=== PATIENT | female | born 1995 | race Two or more races ===

== ENCOUNTER 2023-08-26 11:08 | Observation (INO) | payer MEDICAID ==
[2023-08-26 15:07] LABS: Basophils # (auto) 0 10 ^3/uL (0-0.2); Basophils % (auto) 0.1 % (0.0-2.0); Eosinophils # (auto) 0.1 10 ^3/uL (0-0.8); Eosinophils % (auto) 0.4 % (0.0-7.0); Hematocrit 39.9 % (36.0-46.0); Hemoglobin 13.3 g/dL (12.2-16.2); Lymphocytes # (auto) 1.9 10 ^3/uL (0.4-5.4); Lymphocytes % (auto) 15.1 % (10.0-50.0); Mean Corpuscular Hemoglobin 29.7 pg (28.0-32.0); Mean Corpuscular Hgb Conc. 33.3 g/dL (32.0-36.0); Mean Corpuscular Volume 89.1 fL (80.0-100.0); Monocytes # (auto) 0.7 10 ^3/uL (0-1.3); Monocytes % (auto) 5.4 % (0.0-12.0); Red Blood Cells 4.48 10^6/uL (4.0-5.20); Red Cell Distribution Width 12.8 % (11.8-14.3); White Blood Cell 12.6 10^3/uL (4.4-10.8)
[2023-08-26 15:08] LABS: Urine Bacteria FEW /hpf (None Seen); Urine Blood Negative /uL (Negative); Urine Clarity Clear (Clear); Urine Color Yellow (Yellow); Urine Mucus FEW (None Seen); Urine Protein, UAD Negative (Negative); Urine Specific Gravity 1.018 (1.001-1.035); Urine Urobilinogen Normal (Negative); Urine WBC 2 /hpf (0 - 5); Urine pH 6.5 (5.0-8.0)
[2023-08-26 15:20] LABS: Protein, Urine 21.5 mg/dL (0.0-11.9)
[2023-08-26 15:21] LABS: INR 0.96 (0.9-1.15); Partial Thromboplastin Time 27.7 SEC (24.5-34.5); Prothrombin Time 10.1 sec (9.3-11.8)
[2023-08-26 15:23] LABS: Creatinine, Urine 77.02 mg/dL (30.0-125.0); Urine Protein/Creatinine Ratio 0.28
[2023-08-26 15:26] LABS: Alanine Aminotransferase 53 U/L (7-40); Albumin 3.9 g/dL (3.2-4.8); Alkaline Phosphatase 192 U/L (46-116); Anion Gap 11 (5-15); Aspartate Aminotransferase 40 U/L (13-40); Calcium 9.3 mg/dL (8.5-10.1); Carbon Dioxide 19 mmol/L (20-30); Chloride 106 mmol/L (98-107); Glucose 71 mg/dL (74-106); Potassium 3.7 mmol/L (3.5-5.1); Sodium 136 mmol/L (136-145)
[2023-08-26 15:27] LABS: Bilirubin, Total 0.5 mg/dL (0.2-1.0); Total Protein 6.9 g/dL (5.7-8.2)
[2023-08-26 15:29] LABS: BUN/Creatinine Ratio 10.2 (10.0-20.0); Blood Urea Nitrogen < 5 mg/dL (9-23)
[2023-08-26 15:44] LABS: Uric Acid 4.5 mg/dL (3.1-7.8)
== END 2023-08-26 16:30 | disposition home or self-care (01) ==
LOC: LDRP 11:08 → UNDOADMOB 11:08 → LDRP 13:28
PROVIDERS: ADMIT Obstetrics & Gynecology; ATTEND Obstetrics & Gynecology
DX: O13.3 Gestational [pregnancy-induced] hypertension without significant proteinuria, third trimester (principal); Z3A.36 36 weeks gestation of pregnancy
CPT/HCPCS: 36415; 59025; 76818; 80053; 81001; 81002; 82570; 84156; 84550; 85025; 85610; 85730; 94760; G0378

== ENCOUNTER 2023-08-28 13:05 | Observation (INO) | payer MEDICAID ==
[2023-08-28] MEDS ORDERED: PREN1TAB71 OR (13:34)
[2023-08-28 14:15] LABS: Basophils # (auto) 0 10 ^3/uL (0-0.2); Basophils % (auto) 0.2 % (0.0-2.0); Eosinophils # (auto) 0.1 10 ^3/uL (0-0.8); Eosinophils % (auto) 1.1 % (0.0-7.0); Hematocrit 39.6 % (36.0-46.0); Hemoglobin 13.3 g/dL (12.2-16.2); Lymphocytes # (auto) 1.9 10 ^3/uL (0.4-5.4); Lymphocytes % (auto) 17.5 % (10.0-50.0); Mean Corpuscular Hemoglobin 29.7 pg (28.0-32.0); Mean Corpuscular Hgb Conc. 33.5 g/dL (32.0-36.0); Mean Corpuscular Volume 88.8 fL (80.0-100.0); Monocytes # (auto) 0.9 10 ^3/uL (0-1.3); Monocytes % (auto) 8.7 % (0.0-12.0); Neutrophils # (auto) 7.8 10 ^3/uL (1.6-8.6); Neutrophils % (auto) 72.5 % (37.0-80.0); Red Blood Cells 4.46 10^6/uL (4.0-5.20); Red Cell Distribution Width 12.8 % (11.8-14.3); White Blood Cell 10.8 10^3/uL (4.4-10.8)
[2023-08-28 14:33] LABS: INR 0.94 (0.9-1.15); Partial Thromboplastin Time 27.9 SEC (24.5-34.5); Prothrombin Time 9.9 sec (9.3-11.8)
[2023-08-28 14:35] LABS: Alanine Aminotransferase 54 U/L (7-40); Albumin 3.8 g/dL (3.2-4.8); Alkaline Phosphatase 206 U/L (46-116); Anion Gap 9 (5-15); Aspartate Aminotransferase 43 U/L (13-40); BUN/Creatinine Ratio 10.3 (10.0-20.0); Bilirubin, Total 0.5 mg/dL (0.2-1.0); Blood Urea Nitrogen 6 mg/dL (9-23); Carbon Dioxide 21 mmol/L (20-30); Chloride 107 mmol/L (98-107); Glucose 73 mg/dL (74-106); Potassium 4.5 mmol/L (3.5-5.1); Sodium 137 mmol/L (136-145); Total Protein 6.3 g/dL (5.7-8.2); Uric Acid 4.4 mg/dL (3.1-7.8)
[2023-08-28 15:21] LABS: Urine Bacteria FEW /hpf (None Seen); Urine Blood Negative /uL (Negative); Urine Clarity Clear (Clear); Urine Color Yellow (Yellow); Urine Mucus FEW (None Seen); Urine Protein, UAD TRACE (Negative); Urine Specific Gravity 1.024 (1.001-1.035); Urine Urobilinogen Normal (Negative); Urine WBC 4 /hpf (0 - 5)
[2023-08-28 15:33] LABS: Protein, Urine 25.5 mg/dL (0.0-11.9)
[2023-08-28 15:35] LABS: Creatinine, Urine 113.85 mg/dL (30.0-125.0); Urine Protein/Creatinine Ratio 0.22
[2023-08-28 16:45] LABS: Protein, Urine 13.6 mg/dL (0.0-11.9)
[2023-08-28 18:02] LABS: 24 Hr. Total Protein, Urine 244.8 mg/24 Hr (<149.1)
== END 2023-08-28 16:40 | disposition home or self-care (01) ==
LOC: LDRP 13:05
PROVIDERS: ADMIT Obstetrics & Gynecology; ATTEND Obstetrics & Gynecology
DX: O13.3 Gestational [pregnancy-induced] hypertension without significant proteinuria, third trimester (principal); O26.893 Other specified pregnancy related conditions, third trimester; R10.30 Lower abdominal pain, unspecified; Z3A.36 36 weeks gestation of pregnancy
CPT/HCPCS: 36415; 59025; 76818; 80053; 81001; 81002; 82570; 84156; 84550; 85025; 85610; 85730; G0378

== ENCOUNTER 2023-09-01 10:07 | Observation (INO) | payer MEDICAID ==
[~2023-09-01] VITALS: Ht 154.9 cm; Wt 79.4 kg
[~2023-09-01 10:07] MED LIST: PREN1TAB71 OR
[2023-09-01 11:02] LABS: Basophils # (auto) 0 10 ^3/uL (0-0.2); Basophils % (auto) 0.1 % (0.0-2.0); Eosinophils # (auto) 0.1 10 ^3/uL (0-0.8); Eosinophils % (auto) 1.4 % (0.0-7.0); Hematocrit 37.5 % (36.0-46.0); Hemoglobin 12.8 g/dL (12.2-16.2); Lymphocytes # (auto) 1.6 10 ^3/uL (0.4-5.4); Lymphocytes % (auto) 17.7 % (10.0-50.0); Mean Corpuscular Hemoglobin 30.3 pg (28.0-32.0); Mean Corpuscular Hgb Conc. 34.2 g/dL (32.0-36.0); Mean Corpuscular Volume 88.7 fL (80.0-100.0); Monocytes # (auto) 0.5 10 ^3/uL (0-1.3); Monocytes % (auto) 5.2 % (0.0-12.0); Neutrophils # (auto) 6.9 10 ^3/uL (1.6-8.6); Neutrophils % (auto) 75.6 % (37.0-80.0); Nucleated Red Blood Cells % 0.1 %; Red Blood Cells 4.23 10^6/uL (4.0-5.20); White Blood Cell 9.1 10^3/uL (4.4-10.8)
[2023-09-01 11:16] LABS: Alanine Aminotransferase 43 U/L (7-40); Albumin 3.7 g/dL (3.2-4.8); Alkaline Phosphatase 188 U/L (46-116); Anion Gap 8 (5-15); Aspartate Aminotransferase 37 U/L (13-40); Blood Urea Nitrogen 7 mg/dL (9-23); Calcium 8.8 mg/dL (8.7-10.4); Carbon Dioxide 20 mmol/L (20-30); Chloride 108 mmol/L (98-107); Glucose 129 mg/dL (74-106); Potassium 3.4 mmol/L (3.5-5.1); Sodium 136 mmol/L (136-145); Uric Acid 4.8 mg/dL (3.1-7.8)
[2023-09-01 11:16] LABS: Creatinine, Urine 89.84 mg/dL (30.0-125.0); Protein, Urine 20.1 mg/dL (0.0-11.9); Urine Protein/Creatinine Ratio 0.22
[2023-09-01 11:17] LABS: Bilirubin, Total 0.5 mg/dL (0.2-1.0); Total Protein 6.4 g/dL (5.7-8.2)
[2023-09-01 11:54] LABS: Urine Bacteria MOD /hpf (None Seen); Urine Blood Negative /uL (Negative); Urine Clarity HAZY (Clear); Urine Color Yellow (Yellow); Urine Hyaline Cast FEW /lpf (0 - 2); Urine Mucus FEW (None Seen); Urine Protein, UAD Negative (Negative); Urine Specific Gravity 1.015 (1.001-1.035); Urine Urobilinogen Normal (Negative); Urine WBC 6 /hpf (0 - 5); Urine pH 6.5 (5.0-8.0)
== END 2023-09-01 12:04 | disposition home or self-care (01) ==
LOC: LDRP 10:07 → UNDOADMOB 10:07 → LDRP 10:13
PROVIDERS: ADMIT Obstetrics & Gynecology; ATTEND Obstetrics & Gynecology
DX: O13.3 Gestational [pregnancy-induced] hypertension without significant proteinuria, third trimester (principal); O62.9 Abnormality of forces of labor, unspecified; Z3A.37 37 weeks gestation of pregnancy
CPT/HCPCS: 36415; 59025; 76818; 80053; 81001; 81002; 82570; 84156; 84550; 85025; 94760; G0378

== ENCOUNTER 2023-09-05 10:11 | Inpatient (IN) | payer MEDICAID ==
[~2023-09-05] VITALS: Ht 154.9 cm; Wt 79.4 kg
[2023-09-05 13:08] LABS: Protein, Urine 6.2 mg/dL (0.0-11.9)
[2023-09-05 13:11] LABS: Creatinine, Urine 27.52 mg/dL (30.0-125.0); Urine Protein/Creatinine Ratio 0.23
[2023-09-05 13:12] LABS: INR 0.92 (0.9-1.15); Partial Thromboplastin Time 26.9 SEC (24.5-34.5); Prothrombin Time 9.7 sec (9.3-11.8)
[2023-09-05 13:14] LABS: Alanine Aminotransferase 100 U/L (7-40); Albumin 3.9 g/dL (3.2-4.8); Alkaline Phosphatase 251 U/L (46-116); Anion Gap 9 (5-15); Aspartate Aminotransferase 74 U/L (13-40); BUN/Creatinine Ratio 10.3 (10.0-20.0); Bilirubin, Total 0.4 mg/dL (0.2-1.0); Blood Urea Nitrogen 7 mg/dL (9-23); Calcium 8.9 mg/dL (8.7-10.4); Carbon Dioxide 22 mmol/L (20-30); Chloride 106 mmol/L (98-107); Glucose 102 mg/dL (74-106); Potassium 3.8 mmol/L (3.5-5.1); Sodium 137 mmol/L (136-145); Total Protein 6.5 g/dL (5.7-8.2); Uric Acid 4.1 mg/dL (3.1-7.8)
[2023-09-05 13:24] LABS: Basophils # (auto) 0 10 ^3/uL (0-0.2); Basophils % (auto) 0.3 % (0.0-2.0); Eosinophils # (auto) 0.1 10 ^3/uL (0-0.8); Hematocrit 41.2 % (36.0-46.0); Hemoglobin 13.8 g/dL (12.2-16.2); Lymphocytes # (auto) 1.8 10 ^3/uL (0.4-5.4); Lymphocytes % (auto) 16.6 % (10.0-50.0); Mean Corpuscular Hgb Conc. 33.5 g/dL (32.0-36.0); Mean Corpuscular Volume 89.7 fL (80.0-100.0); Monocytes # (auto) 0.6 10 ^3/uL (0-1.3); Neutrophils # (auto) 8.5 10 ^3/uL (1.6-8.6); Neutrophils % (auto) 77.1 % (37.0-80.0); Nucleated Red Blood Cells % 1.6 %; Red Blood Cells 4.59 10^6/uL (4.0-5.20); Red Cell Distribution Width 13.2 % (11.8-14.3)
[2023-09-05] MEDS ORDERED: LIDOCAINE 2%HCL (LOCAL ANESTH.) INJ 20ML MDV IJ PRN (13:45)
[2023-09-05] MEDS ORDERED: DERMOPLAST 60ML BOTTLE TOP PRN (13:45)
[2023-09-05] MEDS ORDERED: TERBUTALINE SULFATE 1 MG/ML 1ML VIAL SC PRN (13:45)
[2023-09-05] MEDS ORDERED: PHISODERM TOP SOLN 240ML BTL TOP PRN (13:45)
[2023-09-05] MEDS ORDERED: NS/OXYTOCIN 20UNITS 500 ML IV ONE ×2 (13:45→14:15)
[2023-09-05] MEDS ORDERED: LACTATED RINGER'S 1,000 ML IV SCH (13:45)
[2023-09-05] MEDS ORDERED: WITCH HAZEL-GLYCERIN PAD TOP PRN (13:45)
[2023-09-05] MEDS ORDERED: BUTORPHANOL TARTRATE 2 MG/1 ML VIAL IV PRN ×2 (13:45)
[2023-09-05] MEDS ORDERED: PROMETHAZINE HCL 25 MG/ML 1ML IV PRN (13:45)
[2023-09-05 15:13] LABS: Amphetamine Screen, Urine Neg (NEGATIVE); Barbiturate Scree,Urine Neg (NEGATIVE); Benzodiazephine Screen, Urine Neg (NEGATIVE); Cannabinoid Screen, Urine Neg (NEGATIVE); Cocaine Screen, Urine Neg (NEGATIVE); Opiate Scree,Urine Neg (NEGATIVE); Phencyclidine Screen, Urine Neg (NEGATIVE)
[2023-09-05] MEDS ORDERED: hydrALAZINE HCL 20 MG/ML VL IV PRN (15:15)
[2023-09-05 15:37] LABS: Urine Clarity CLEAR (Clear); Urine Color Colorless (Yellow); Urine Specific Gravity 1.006 (1.001-1.035)
[2023-09-05 15:38] LABS: Urine Blood Negative /uL (Negative); Urine Protein, UAD Negative (Negative); Urine Urobilinogen NEG (Negative); Urine WBC 4 /hpf (0 - 5); Urine pH 6.5 (5.0-8.0)
[2023-09-05 15:39] LABS: Urine Bacteria MOD /hpf (None Seen); Urine Mucus FEW (None Seen)
[2023-09-05] MEDS: miSOPROStol 50 MCG per PRE-CUT 1/2 TAB PO PRN ×2 (16:26→21:15)
[2023-09-05] MEDS ORDERED: miSOPROStol 100 mcg TAB ONE (21:09)
[2023-09-05 23:23] LABS: Basophils # (auto) 0 10 ^3/uL (0-0.2); Basophils % (auto) 0.3 % (0.0-2.0); Eosinophils # (auto) 0.1 10 ^3/uL (0-0.8); Eosinophils % (auto) 0.5 % (0.0-7.0); Hematocrit 40.7 % (36.0-46.0); Hemoglobin 13.4 g/dL (12.2-16.2); Lymphocytes % (auto) 14.1 % (10.0-50.0); Mean Corpuscular Hemoglobin 29.6 pg (28.0-32.0); Mean Corpuscular Hgb Conc. 33.1 g/dL (32.0-36.0); Mean Corpuscular Volume 89.5 fL (80.0-100.0); Monocytes # (auto) 0.7 10 ^3/uL (0-1.3); Monocytes % (auto) 4.6 % (0.0-12.0); Neutrophils # (auto) 11.5 10 ^3/uL (1.6-8.6); Neutrophils % (auto) 80.5 % (37.0-80.0); Red Blood Cells 4.54 10^6/uL (4.0-5.20); White Blood Cell 14.3 10^3/uL (4.4-10.8)
[2023-09-05 23:41] LABS: Alanine Aminotransferase 117 U/L (7-40); Albumin 3.9 g/dL (3.2-4.8); Alkaline Phosphatase 236 U/L (46-116); Anion Gap 11 (5-15); Aspartate Aminotransferase 86 U/L (13-40); Bilirubin, Total 0.6 mg/dL (0.2-1.0); Calcium 9.3 mg/dL (8.7-10.4); Carbon Dioxide 19 mmol/L (20-30); Chloride 105 mmol/L (98-107); Glucose 85 mg/dL (74-106); Potassium 4.1 mmol/L (3.5-5.1); Sodium 135 mmol/L (136-145)
[2023-09-05 23:42] LABS: BUN/Creatinine Ratio 9.1 (10.0-20.0); Blood Urea Nitrogen < 5 mg/dL (9-23)
[2023-09-06] MEDS ORDERED: miSOPROStol 100 mcg TAB ONE ×2 (02:09→07:31)
[2023-09-06] MEDS: miSOPROStol 50 MCG per PRE-CUT 1/2 TAB PO PRN ×2 (02:11→13:06)
[2023-09-06] MEDS ORDERED: LORazepam 2MG/ML-1ML VIAL IV PRN (03:45)
[2023-09-06] MEDS ORDERED: MAGNESIUM SULFATE 100 ML IV ONE (04:00)
[2023-09-06] MEDS: MAGNESIUM SULFATE 40MG/ML 1,000 ML IV SCH (04:47)
[2023-09-06] MEDS: LACTATED RINGER'S 1,000 ML IV SCH ×2 (11:26→22:23)
[2023-09-06] MEDS ORDERED: LACTATED RINGER'S 1,000 ML IV ONE (16:00)
[2023-09-06] MEDS ORDERED: LIDOCAINE HCL 2 %PF INJ 10ML AMP IJ ONE (16:00)
[2023-09-06] MEDS ORDERED: NALOXONE HCL 0.4 MG/ML VIAL IV ONE (16:00)
[2023-09-06] MEDS ORDERED: ROPIVACAINE 0.5% (5MG/ML) 20ML AMPULE IJ ONE (16:00)
[2023-09-06] MEDS ORDERED: ePHEDrine SULFATE 50 MG/ML AMP IV ONE (16:00)
[2023-09-06] MEDS ORDERED: ROPIVACAINE HCL 100 ML ONE ×2 (16:07→22:42)
[2023-09-06] MEDS ORDERED: DINOPROSTONE 10MG VAG SUPP PV ONE (17:00)
[2023-09-06] MEDS ORDERED: LACT. RINGERS/OXYTOCIN 20UNITS 1,000 ML IV SCH (18:00)
[2023-09-07] VITALS (22 sets, daily range): BP systolic 111–135; BP diastolic 67–84; PULSE 87–100; RESP 14–18; TEMP 97.8–98.8; O2SAT 96–98
[2023-09-07] MEDS ORDERED: ONDANSETRON ODT 4 MG TAB PO PRN (00:45)
[2023-09-07] MEDS: ACETAMINOPHEN 325 MG TAB PO PRN ×2 (03:18→12:56)
[2023-09-07 06:35] LABS: Basophils # (auto) 0 10 ^3/uL (0-0.2); Basophils % (auto) 0.3 % (0.0-2.0); Eosinophils # (auto) 0.1 10 ^3/uL (0-0.8); Eosinophils % (auto) 0.4 % (0.0-7.0); Hematocrit 32.4 % (36.0-46.0); Hemoglobin 10.9 g/dL (12.2-16.2); Lymphocytes # (auto) 1.3 10 ^3/uL (0.4-5.4); Lymphocytes % (auto) 9.2 % (10.0-50.0); Mean Corpuscular Hgb Conc. 33.6 g/dL (32.0-36.0); Mean Corpuscular Volume 89.4 fL (80.0-100.0); Monocytes # (auto) 0.9 10 ^3/uL (0-1.3); Monocytes % (auto) 6.3 % (0.0-12.0); Neutrophils % (auto) 83.8 % (37.0-80.0); Red Blood Cells 3.63 10^6/uL (4.0-5.20); Red Cell Distribution Width 13.3 % (11.8-14.3); White Blood Cell 14.3 10^3/uL (4.4-10.8)
[2023-09-07 06:45] LABS: Alanine Aminotransferase 110 U/L (7-40); Alkaline Phosphatase 181 U/L (46-116); Anion Gap 10 (5-15); Calcium 7.6 mg/dL (8.7-10.4); Carbon Dioxide 21 mmol/L (20-30); Chloride 105 mmol/L (98-107); Glucose 102 mg/dL (74-106); Potassium 3.5 mmol/L (3.5-5.1); Sodium 136 mmol/L (136-145)
[2023-09-07 06:46] LABS: BUN/Creatinine Ratio 10.2 (10.0-20.0); Blood Urea Nitrogen 5 mg/dL (9-23)
[2023-09-07 06:47] LABS: Albumin 3.1 g/dL (3.2-4.8); Aspartate Aminotransferase 91 U/L (13-40)
[2023-09-07 06:48] LABS: Bilirubin, Total 1.5 mg/dL (0.2-1.0); Total Protein 5.4 g/dL (5.7-8.2)
[2023-09-07 07:07] LABS: RPR Non Reactive (Non Reactive)
[2023-09-07] MEDS: MAGNESIUM SULFATE 40MG/ML 1,000 ML IV SCH (09:09)
[2023-09-07] MEDS: LACTATED RINGER'S 1,000 ML IV SCH (13:57)
[2023-09-07] MEDS: IBUPROFEN 600 MG TAB PO PRN (18:43)
[2023-09-07] MEDS: DOCUSATE SOD 100 MG CAP PO SCH (22:00)
[2023-09-08] VITALS (7 sets, daily range): BP systolic 122–139; BP diastolic 40–84; PULSE 77–93; RESP 12–20; TEMP 97.8–98.3; O2SAT 96–99
[2023-09-08] MEDS ORDERED: PREN1TAB71 PO (00:41)
[2023-09-08] MEDS ORDERED: FERR30CA PO (00:41)
[2023-09-08] MEDS ORDERED: IBU600T PO (00:41)
[2023-09-08] MEDS ORDERED: DOCU-265 PO (00:41)
[2023-09-08] MEDS: IBUPROFEN 600 MG TAB PO PRN ×3 (04:36→22:08)
[2023-09-08 06:39] LABS: INR 0.9 (0.9-1.15); Partial Thromboplastin Time 27.8 SEC (24.5-34.5); Prothrombin Time 9.5 sec (9.3-11.8)
[2023-09-08 06:44] LABS: Alanine Aminotransferase 129 U/L (7-40); Albumin 3.9 g/dL (3.2-4.8); Alkaline Phosphatase 221 U/L (46-116); Anion Gap 9 (5-15); Aspartate Aminotransferase 98 U/L (13-40); BUN/Creatinine Ratio 7.5 (10.0-20.0); Bilirubin, Total 0.7 mg/dL (0.2-1.0); Blood Urea Nitrogen 5 mg/dL (9-23); Calcium 8.7 mg/dL (8.5-10.1); Carbon Dioxide 25 mmol/L (20-30); Chloride 103 mmol/L (98-107); Glucose 72 mg/dL (74-106); Potassium 3.6 mmol/L (3.5-5.1); Sodium 137 mmol/L (136-145); Total Protein 6.8 g/dL (5.7-8.2)
[2023-09-08 06:50] LABS: Basophils # (auto) 0 10 ^3/uL (0-0.2); Basophils % (auto) 0.2 % (0.0-2.0); Eosinophils # (auto) 0.1 10 ^3/uL (0-0.8); Eosinophils % (auto) 0.7 % (0.0-7.0); Hematocrit 37.9 % (36.0-46.0); Hemoglobin 12.6 g/dL (12.2-16.2); Lymphocytes # (auto) 2.3 10 ^3/uL (0.4-5.4); Lymphocytes % (auto) 14.6 % (10.0-50.0); Mean Corpuscular Hemoglobin 30.2 pg (28.0-32.0); Mean Corpuscular Hgb Conc. 33.3 g/dL (32.0-36.0); Mean Corpuscular Volume 90.7 fL (80.0-100.0); Monocytes % (auto) 6.3 % (0.0-12.0); Neutrophils # (auto) 12.4 10 ^3/uL (1.6-8.6); Neutrophils % (auto) 78.2 % (37.0-80.0); Red Blood Cells 4.18 10^6/uL (4.0-5.20); Red Cell Distribution Width 13.4 % (11.8-14.3); White Blood Cell 15.8 10^3/uL (4.4-10.8)
[2023-09-08] MEDS: ACETAMINOPHEN 325 MG TAB PO PRN (09:37)
[2023-09-08 12:05] LABS: Uric Acid 5.6 mg/dL (3.1-7.8)
[2023-09-08 19:06] LABS: Treponema pallidum Ab (FTA-Ab) Non Reactive (Non Reactive)
[2023-09-08] MEDS: DOCUSATE SOD 100 MG CAP PO SCH (22:00)
[2023-09-09 04:00] VITALS: BP 118/75; PULSE 81; RESP 16; TEMP 98.1; O2SAT 97
[2023-09-09] MEDS: IBUPROFEN 600 MG TAB PO PRN (05:07)
[2023-09-09 06:30] VITALS: BP 121/72; PULSE 79; RESP 16; TEMP 97.9; O2SAT 98
[2023-09-09 06:34] LABS: Basophils # (auto) 0 10 ^3/uL (0-0.2); Basophils % (auto) 0.2 % (0.0-2.0); Eosinophils # (auto) 0.3 10 ^3/uL (0-0.8); Eosinophils % (auto) 1.8 % (0.0-7.0); Hematocrit 32.4 % (36.0-46.0); Hemoglobin 10.7 g/dL (12.2-16.2); Lymphocytes # (auto) 1.9 10 ^3/uL (0.4-5.4); Lymphocytes % (auto) 13.6 % (10.0-50.0); Mean Corpuscular Hgb Conc. 32.9 g/dL (32.0-36.0); Mean Corpuscular Volume 91.1 fL (80.0-100.0); Monocytes # (auto) 0.9 10 ^3/uL (0-1.3); Monocytes % (auto) 6.2 % (0.0-12.0); Neutrophils # (auto) 11.2 10 ^3/uL (1.6-8.6); Neutrophils % (auto) 78.2 % (37.0-80.0); Red Blood Cells 3.56 10^6/uL (4.0-5.20); Red Cell Distribution Width 13.3 % (11.8-14.3); White Blood Cell 14.3 10^3/uL (4.4-10.8)
[2023-09-09 06:41] LABS: Alanine Aminotransferase 122 U/L (7-40); Albumin 3.5 g/dL (3.2-4.8); Alkaline Phosphatase 193 U/L (46-116); Anion Gap 13 (5-15); Aspartate Aminotransferase 84 U/L (13-40); BUN/Creatinine Ratio 12.1 (10.0-20.0); Bilirubin, Total 0.4 mg/dL (0.2-1.0); Blood Urea Nitrogen 7 mg/dL (9-23); Calcium 8.7 mg/dL (8.7-10.4); Carbon Dioxide 19 mmol/L (20-30); Chloride 107 mmol/L (98-107); Glucose 103 mg/dL (74-106); Potassium 3.4 mmol/L (3.5-5.1); Sodium 139 mmol/L (136-145); Uric Acid 5.1 mg/dL (3.1-7.8)
[2023-09-09 06:44] LABS: INR 0.93 (0.9-1.15); Partial Thromboplastin Time 26.9 SEC (24.5-34.5); Prothrombin Time 9.8 sec (9.3-11.8)
== END 2023-09-09 09:13 | disposition home or self-care (01) | DRG 560 ==
LOC: LDRP 10:11 → OBSVTOIN 13:40 → LDRP 13:41
PROVIDERS: ADMIT Obstetrics & Gynecology; ATTEND Obstetrics & Gynecology
PROC: 10E0XZZ Delivery of Products of Conception, External Approach (ICD-10-PCS; principal; 2023-09-06)
PROC: 0KQM0ZZ Repair Perineum Muscle, Open Approach (ICD-10-PCS; 2023-09-06)
PROC: 0HQ9XZZ Repair Perineum Skin, External Approach (ICD-10-PCS; 2023-09-06)
PROC: 3E0R3BZ Introduction of Anesthetic Agent into Spinal Canal, Percutaneous Approach (ICD-10-PCS; 2023-09-06)
PROC: 00HU33Z Insertion of Infusion Device into Spinal Canal, Percutaneous Approach (ICD-10-PCS; 2023-09-06)
DX: O69.81X0 Labor and delivery complicated by cord around neck, without compression, not applicable or unspecified (principal); Z37.0 Single live birth; O14.14 Severe pre-eclampsia complicating childbirth; Z3A.38 38 weeks gestation of pregnancy; O70.1 Second degree perineal laceration during delivery; O70.0 First degree perineal laceration during delivery; O90.81 Anemia of the puerperium
CPT/HCPCS: 36415; 59025; 59409; 62282; 76818; 80053; 80307; 81001; 81002; 82570; 82962; 83735; 84156; 84550; 85025; 85384; 85610; 85730; 86592; 86850; 86900; 86901; 94760; 94762; 96360; 96361; 96365; 96366; G0378; J2590